=== PATIENT | female | born 1950 | race Caucasian/White ===

== ENCOUNTER 2020-07-05 12:06 | Emergency (ER) | payer MEDICARE, OTHER, SELFPAY ==
[2020-07-05] VITALS (8 sets, daily range): BP systolic 116–132; BP diastolic 65–80; PULSE 56–65; RESP 13–23; TEMP 36.5; O2SAT 97–99; BMI 22.8
--- NOTE | 2020-07-05 13:12 | DI.RAD.S_ITS ---
PROCEDURE: XR CHEST 2V INDICATIONS: Left lower rib pain TECHNIQUE: 2 views of the chest were acquired. COMPARISON: None. FINDINGS: Surgical changes and devices: None. Lungs and pleura: Lungs are clear. No pleural effusions or pneumothorax. Mediastinum: Mediastinal contours are normal. Heart size is normal. Bones and chest wall: No suspicious bony abnormalities. Soft tissues appear unremarkable. IMPRESSION: No acute cardiopulmonary disease process. Dictated by: Jennifer Ortiz MD, PhD on 07/05/2020 at 13:28 Approved by: Jennifer Ortiz MD, PhD on 07/05/2020 at 13:28
--- NOTE | 2020-07-05 14:19 | ED_ITS ---
HPI - Chest Pain <Kezia Arroyo PA-C - Last Filed: 07/05/20 16:56> General Chief Complaint: Chest Pain Stated Complaint: left side pain under rib x 4 day Time Seen by Provider: 07/05/20 13:16 Source: patient Mode of arrival: Ambulatory Limitations: no limitations History of Present Illness HPI narrative: This is a well-appearing 69-year-old woman who was diagnosed with COVID about 2 weeks ago has finished warranting and was feeling in her normal state of health until Sunday when she started having some left-sided rib pain. She states that her pain is a constant achy pain that is fairly subtle is worse if she lies on her left side is worse with movements and is worse with deep br eath. When she does take deep breath she feels like it is more sharp and painful. She denies any fevers, chills, nausea, vomiting, diarrhea, abdominal pain, shortness of breath, chest pain, dysuria or any other symptoms. She states she has been in her normal state of health and feeling better she does note that she did cough a fair amount because of her COVID symptoms although she feels that her coughing has improved significantly. She also states that she helped her to load a heavy trunk into their car on the day before her pain started. She does not specifically remember having pain as result of lifting the trunk. MD complaint: chest pain Onset (ago): day(s) (4) Duration: constant, intermittent and other (constant mild ache, sharp pain with movements/deep breath) Onset: other Pain location: left chest (Left low chest/ribs and side) Severity: moderate Severity scale (1-10): 3 Quality: aching and sharp Pain radiation: none Relieving factors: nothing Exacerbating factors: other (lying on left side, deep breaths,mvmt) Context: recent illness (recent recovered from COVID) Associated symptoms: other (none) Treatments prior to arrival chest pain: other (one ibuprofen didn't help) Related Data Previous Rx's Medication Instructions Recorded baclofen 20 mg PO TID #60 tab 07/05/20 Allergies Allergy/AdvReac Type Severity Reaction Status Date / Time Penicillins Allergy Rash Verified 07/05/20 13:05 Sulfa (Sulfonamide Allergy Rash Verified 07/05/20 13:05 Antibiotics) Review of Systems <Kezia Arroyo PA-C - Last Filed: 07/05/20 16:56> Review of Systems Narrative: GENERAL: Denies chills, fatigue, malaise, fever, sweats. HEENT: Denies sinus pain, ear pain, sore throat, difficulty swallowing, di zziness. RESPIRATORY: Denies dyspnea, did have a cough that has now pretty much resolved, denies wheezing, hemoptysis, sputum. CARDIOVASCULAR: Denies chest pain, palpitations, orthopnea, edema, GASTROINTESTINAL: Denies nausea, vomiting, abdominal pain, diarrhea, constipation, melena. : Denies dysuria, frequency, incontinence, hematuria, urinary retention. MUSCULOSKELETAL: Positive for left-sided rib and chest pain low down on the left side of her chest, denies weakness, joint pain, or bony pain SKIN: Denies rash, skin lesions, or other NEUROLOGIC: Denies weakness, headache, numbness, change in speech, confusion, seizures, incoordination. PSYCHIATRIC: No concerning psychosocial issues. 12 point review of systems is negative except for those stated above Patient History <Kezia Arroyo PA-C - Last Filed: 07/05/20 16:56> Social History Smoking Status: Never smoker Smoking Status: Never smoker alcohol intake frequency: a few times a month Substance Use Type: does not use Exam <Kezia Arroyo PA-C - Last Filed: 07/05/20 16:56> Narrative Exam Narrative: GENERAL: 69 year old patient appears stated age. Well-nourished, well-developed patient, in mild distress. HEAD: Atraumatic. Normocephalic. EYES: Pupils equal round and reactive. Extraocular motions intact. No scleral icterus. No injection or drainage. ENT: Nose without bleeding, purulent drainage. Throat without erythema, tonsillar hypertrophy or exudate. Airway patent. NECK: Trachea midline. Non tender CARDIOVASCULAR: Regular rate and rhythm without murmurs, gallops, or rubs. RESPIRATORY: Clear to auscultation. Breath sounds equal bilaterally. No wheezes, rales, or rhonchi. GASTROINTESTINAL: Abdomen soft, non-tender, nondistended. EXTREMITIES: No edema or joint tenderness. BACK/chest wall: back Nontender without deformity or crepitance. There is no pain with palpation over the sternum, she has tenderness over the 10th 11th and 12th ribs at the anterior midclavicular line and laterally to the mid axillary line over the ribs and intercostal muscles. No flank tenderness. NEURO: AOx3. SKIN: No rash or erythema of visible areas Initial Vital Signs Initial Vital Signs: Vital Signs Temperature 97.7 F 07/05/20 13:05 Pulse Rate 65 07/05/20 13:05 Respiratory Rate 20 07/05/20 13:05 Blood Pressure 121/65 07/05/20 13:05 Pulse Oximetry 97 07/05/20 13:05 <Alysha Smith DO - Last Filed: 07/07/20 09:27> Initial Vital Signs Initial Vital Signs: Vital Signs Temperature 97.7 F 07/05/20 13:05 Pulse Rate 65 07/05/20 13:05 Respiratory Rate 20 07/05/20 13:05 Blood Pressure 121/65 07/05/20 13:05 Pulse Oximetry 97 07/05/20 13:05 Scores <Kezia Arroyo PA-C - Last Filed: 07/05/20 16:56> GCS [place] coma scale eye opening: Spontaneous [place] coma scale verbal response: Orientated [place] coma scale motor response: Obey commands [place] coma scale total score: 15 Course <Kezia Arroyo PA-C - Last Filed: 07/05/20 16:56> Course Course Narrative: Patient does have a slightly elevated D-dimer however it is only 8 points above normal and her age adjusted D-dimer is 680 mcg for L before we would consider a thromboembolism to be likely. In this patient with the age adjusted D-dimer I do not feel that she requires additional workup for this slightly abnormal lab value at 268. 1523 Orders Ordered: Discontinued Medications Ketorolac Tromethamine (Ketorolac 60 Mg/2 Ml Vial) 15 mg IV NOW ONE Stop: 07/05/20 16:36 Last Admin: 07/05/20 17:05 Dose: 15 mg Documented by: JURGEN Vital Signs Vital signs: Vital Signs - 8 hr 07/05/20 13:05 07/05/20 14:37 07/05/20 15:00 Temperature 97.7 F Pulse Rate 65 59 L 58 L Respiratory Rate 20 18 18 Blood Pressure 121/65 126/67 Pulse Oximetry 97 98 99 07/05/20 15:30 07/05/20 16:00 Temperature Pulse Rate 59 L 56 L Respiratory Rate 21 23 Blood Pressure 116/66 126/71 Pulse Oximetry 97 97 <Alysha Smith DO - Last Filed: 07/07/20 09:27> Orders Ordered: Discontinued Medications Ketorolac Tromethamine (Ketorolac 60 Mg/2 Ml Vial) 15 mg IV NOW ONE Stop: 07/05/20 16:36 Last Admin: 07/05/20 17:05 Dose: 15 mg Documented by: JURGEN Vital Signs Vital signs: Vital Signs - 8 hr 07/05/20 13:05 07/05/20 14:37 07/05/20 15:00 Temperature 97.7 F Pulse Rate 65 59 L 58 L Respiratory Rate 20 18 18 Blood Pressure 121/65 126/67 Pulse Oximetry 97 98 99 07/05/20 15:30 07/05/20 16:00 Temperature Pulse Rate 59 L 56 L Respiratory Rate 21 23 Blood Pressure 116/66 126/71 Pulse Oximetry 97 97 MDM - Chest Pain <Kezia Arroyo PA-C - Last Filed: 07/05/20 16:56> Differential Diagnosis Differential diagnosis: Likely fracture of rib, pneumothorax, atypical chest pain, costochondritis, chest pain and other (Muscle strain, sprain, pancreatitis, [place]) Medical Records Data Attestation: I reviewed the patient's medical records. Lab Data Attestation: I reviewed the patient's lab results. Result diagrams: 07/05/20 14:33 07/05/20 14:33 Labs: Lab Results 07/05/20 07/05/20 07/05/20 Range/Units 14:33 14:33 14:33 WBC 8.0 (4.5-11.0) X10^3/uL RBC 4.43 (4.0-5.2) X10^6/uL Hgb 13.5 (12.0-16.0) g/dL Hct 40.1 (36-46) % MCV 90.6 (80-100) fL MCH 30.6 (26-34) PG MCHC 33.7 (30-36) % RDW 13.2 (11.6-14.8) % Plt Count 240 (150-400) X10^3/uL Neut % (Auto) 64.9 (50-75) % Lymph % (Auto) 24.9 L (25-40) % [place] % (Auto) 7.4 (3-14) % Eos % (Auto) 1.6 L (2-4) % Baso % (Auto) 1.2 (0-2) % Neut # (Auto) 5200 (2592-8296) /uL Lymph # (Auto) 2000 (1604-8061) /uL [place] # (Auto) 600 (0-900) /uL Eos # (Auto) 100 (0-450) /uL Baso # (Auto) 100 (0-100) /uL D-Dimer 268 H (<230) ng/mL Sodium 137 (137-145) mmol/L Potassium 3.9 (3.4-5.1) mmol/L Chloride 105 (98-107) mmol/L Carbon Dioxide 28 (22-32) mmol/L BUN 17 (7-17) mg/dL Creatinine 0.79 (0.52-1.04) mg/dL Estimated GFR > 60.0 (>60) mL/min BUN/Creatinine Ratio 21.5 (6-22) Glucose 91 (80-110) mg/dL Calcium 9.6 (8.4-10.2) mg/dL Total Bilirubin 0.6 (0.2-1.3) mg/dL AST 39 H (14-36) IU/L ALT 43 H (<35) IU/L Alkaline Phosphatase 107 (38-126) U/L Total Creatine Kinase 55 (30-135) U/L CK-MB (CK-2) TNP CK-MB (CK-2) Rel Index TNP Troponin I < 0.012 (0.01-0.034) ng/mL Total Protein 7.6 (6.3-8.2) g/dL Albumin 4.2 (3.5-5.0) g/dL Globulin 3.4 (1.7-4.1) g/dL Albumin/Globulin Ratio 1.2 (1.0-2.8) Lipase 124 (23-300) U/L ECG Data Attestation: I personally reviewed and interpreted this ECG as follows: Interpretation: Sinus rhythm heart rate of 58, sinus bradycardia p.r. interval 165 QRS 99 QTC 446 P axis 62 R axis 38 T axis 57 Core Measures Measure exclusions: not indicated MDM Narrative Medical decision making narrative: This is a well-appearing reportedly healthy 69-year-old woman who was diagnosed with COVID in early June about 2 weeks ago who presents complaining of new onset of left-sided chest and rib pain that began 4 days ago. Patient's exam and labs are unremarkable she has a very slightly elevated D-dimer 268 work office to 60 however given her age adjusted D-dimer this is unremarkable and does not warrant further workup. She is not complaining of any shortness of breath or any other concerning cardiopulmonary symptoms. Chest x-ray is unremarkable. Lipase also returns unremarkable she does have tenderness of her left lower ribcage and it is most consistent with a muscle strain intercostal. Tenderness and I have low suspicion for pyelonephritis or urinary etiology for her pain. She did do some heavy lifting the day before her pain began and I think that this likely explains her symptoms today. Troponin was also negative, serial troponins were not performed given the duration of this patient's pain. I have low suspicion that her symptoms today are related to her COVID or another acute cardiopulmonary process that would require further workup for evaluation in the emergency department today. She receives a printout of labs and her EKG to take home to her primary care provider who she will be seeing shortly after [place]. Advised to take Tylenol, ibuprofen, try stretching and heating pads also prescribed baclofen as a muscle relaxer. As she is currently traveling with her . She is advised regarding emergency return precautions, all questions answered. <Alysha Smith, - Last Filed: 07/07/20 09:27> Lab Data Labs: Lab Results 07/05/20 07/05/20 07/05/20 Range/Units 14:33 14:33 14:33 WBC 8.0 (4.5-11.0) X10^3/uL RBC 4.43 (4.0-5.2) X10^6/uL Hgb 13.5 (12.0-16.0) g/dL Hct 40.1 (36-46) % MCV 90.6 (80-100) fL MCH 30.6 (26-34) PG MCHC 33.7 (30-36) % RDW 13.2 (11.6-14.8) % Plt Count 240 (150-400) X10^3/uL Neut % (Auto) 64.9 (50-75) % Lymph % (Auto) 24.9 L (25-40) % [place] % (Auto) 7.4 (3-14) % Eos % (Auto) 1.6 L (2-4) % Baso % (Auto) 1.2 (0-2) % Neut # (Auto) 5200 (8679-3294) /uL Lymph # (Auto) 2000 (8282-6084) /uL [place] # (Auto) 600 (0-900) /uL Eos # (Auto) 100 (0-450) /uL Baso # (Auto) 100 (0-100) /uL D-Dimer 268 H (<230) ng/mL Sodium 137 (137-145) mmol/L Potassium 3.9 (3.4-5.1) mmol/L Chloride 105 (98-107) mmol/L Carbon Dioxide 28 (22-32) mmol/L BUN 17 (7-17) mg/dL Creatinine 0.79 (0.52-1.04) mg/dL Estimated GFR > 60.0 (>60) mL/min BUN/Creatinine Ratio 21.5 (6-22) Glucose 91 (80-110) mg/dL Calcium 9.6 (8.4-10.2) mg/dL Total Bilirubin 0.6 (0.2-1.3) mg/dL AST 39 H (14-36) IU/L ALT 43 H (<35) IU/L Alkaline Phosphatase 107 (38-126) U/L Total Creatine Kinase 55 (30-135) U/L CK-MB (CK-2) TNP CK-MB (CK-2) Rel Index TNP Troponin I < 0.012 (0.01-0.034) ng/mL Total Protein 7.6 (6.3-8.2) g/dL Albumin 4.2 (3.5-5.0) g/dL Globulin 3.4 (1.7-4.1) g/dL Albumin/Globulin Ratio 1.2 (1.0-2.8) Lipase 124 (23-300) U/L Discharge Plan Departure Patient Disposition: Home Clinical Impression: Muscle strain of anterior chest wall Instructions: DI for Atypical Chest Pain, DI for Muscle Strain Activity Restrictions/Additional Instructions: Thank you for letting us be part of your care in the emergency department today. There is no evidence of an emergent or life threatening illness at this time, but follow up with your doctor in 1-2 days is recommended nonetheless to continue to rule out serious underlying causes of your symptoms. Please call the office for an appointment. Please return to the Emergency Department for any worsening or persistent symptoms. Please take medications as directed. I have prescribed a muscle relaxer for you and I encourage you to take Tylenol and ibuprofen as needed for pain. We also gave you some pain medicine in the emergency department called Toradol. I did give you a copy of your labs from today as well as your EKG and your chest x-ray Radiology interpretation although I recommend you advised your primary care provider your here at this visit and they can reach out to our hospital to get your records sent over so they can actually get my report from today as well. Even though everything was looking good today it is important that you pay close attention to her symptoms if you feel like things are worsening or changing or your developing new or concerning symptoms including fevers, chills, shortness of breath, chest pain different than what you experience so far any other symptoms he should not hesitate to get rechecked or seek medical care. Please see the attached instructions regarding muscle strain. I think that this is most likely the cause of the pain you are experiencing. You can take the muscle relaxer as prescribed please do not take before driving or operating equipment. Prescriptions: New baclofen 20 mg tablet 20 mg PO TID Qty: 60 RF: 0 <Alysha Smith, - Last Filed: 07/07/20 09:27> [facility] Attending Bonyature Attestation: I was immediately available in the department for consultation. Documentation has been reviewed.
--- NOTE | 2020-07-05 14:36 | PC.NURSE ---
Patient reports pain to left side below ribs. States pain is constant and worsens with movement and bending. Denies SOB or chest pain. States does have a cry persistent cough since testing positive for covid in early June but denies change in symptoms. EKG performed. Placed on monitor. HR 60 bpm and O2 sat 99% on room air.
[2020-07-05 14:40] LABS: Add Manual Diff / Slide Review NO; Basophils Absolute Auto 100 /uL (0-100); Basophils Percent Auto 1.2 % (0-2); Eosinophils Absolute Auto 100 /uL (0-450); Eosinophils Percent Auto 1.6 % (2-4); Hematocrit 40.1 % (36-46); Hemoglobin 13.5 g/dL (12.0-16.0); Lymphocytes Absolute Auto 2000 /uL (1100-4500); Lymphocytes Percent Auto 24.9 % (25-40); Mean Corpuscular HGB Conc 33.7 % (30-36); Mean Corpuscular Hemoglobin 30.6 PG (26-34); Mean Corpuscular Volume 90.6 fL (80-100); Monocytes Absolute Auto 600 /uL (0-900); Monocytes Percent Auto 7.4 % (3-14); Neutrophils Absolute Auto 5200 /uL (1500-7000); Neutrophils Percent Auto 64.9 % (50-75); Platelet Count 240 X10^3/uL (150-400); Red Blood Cell Count 4.43 X10^6/uL (4.0-5.2); Red Cell Distribution Width 13.2 % (11.6-14.8)
[2020-07-05 14:51] LABS: D Dimer 268 ng/mL (<230)
[2020-07-05 14:53] LABS: Alanine Aminotransferase 43 IU/L (<35); Albumin 4.2 g/dL (3.5-5.0); Albumin Globulin Ratio 1.2 (1.0-2.8); Alkaline Phosphatase 107 U/L (38-126); Aspartate Aminotransferase 39 IU/L (14-36); BUN Creatinine Ratio 21.5 (6-22); Bilirubin Total 0.6 mg/dL (0.2-1.3); Blood Urea Nitrogen 17 mg/dL (7-17); Calcium 9.6 mg/dL (8.4-10.2); Carbon Dioxide 28 mmol/L (22-32); Chloride 105 mmol/L (98-107); Creatine Kinase 55 U/L (30-135); Estimated Glomerular Filt Rate > 60.0 mL/min (>60); Globulin 3.4 g/dL (1.7-4.1); Glucose 91 mg/dL (80-110); HEMOLYSIS < 15 (0-50); Lipase 124 U/L (23-300); Potassium 3.9 mmol/L (3.4-5.1); Sodium 137 mmol/L (137-145); Total Protein 7.6 g/dL (6.3-8.2)
[2020-07-05 15:04] LABS: Troponin I < 0.012 ng/mL (0.01-0.034)
[2020-07-05] MEDS: KETOROLAC 60 MG/2 ML VIAL 15 MG IV (17:05)
== END 2020-07-05 17:31 | disposition home or self-care (01) ==
PROVIDERS: Emergency Provider Student in an Organized Health Care Education/Training Program
DX: S29.011A Strain of muscle and tendon of front wall of thorax, initial encounter (principal); Z86.19 Personal history of other infectious and parasitic diseases; R00.1 Bradycardia, unspecified; X50.0XXA Overexertion from strenuous movement or load, initial encounter
CPT/HCPCS: 36415; 71046; 80053; 82550; 83690; 84484; 85025; 85379; 93005; 96374; 99283; 99284; J1885